=== PATIENT | male | born 1940 | race Caucasian/White ===

== ENCOUNTER 2019-08-17 16:36 | Emergency (ER) | payer MEDICARE, OTHER, SELFPAY ==
[2019-08-17 16:37] VITALS: BP 133/85; PULSE 73; RESP 16; TEMP 36.1; O2SAT 99; BMI 23.7
--- NOTE | 2019-08-17 17:30 | CT_ITS ---
STUDY: CT BRAIN WITHOUT CONTRAST REASON FOR EXAM: Male, 78 years old. Intoxication. Fall. RADIATION DOSAGE (If Supplied By Facility): CTDIvol = ( 44.99 ) mGy, DLP = ( 846.73 ) mGycm TECHNIQUE: Transaxial CT imaging of the brain was performed without administration of intravenous contrast material. Individualized dose optimization techniques were used for this CT. COMPARISON: No relevant priors. FINDINGS: Normal soft tissue structures. Normal calvarium. There are deformities along both sides of the nose system with fractures of indeterminate age. There is moderate cerebral atrophy with widening of the extra-axial spaces and ventricular dilatation. There are areas of decreased attenuation within the white matter tracts of the supratentorial brain, consistent with microvascular disease changes. Normal basal ganglia and thalami. Normal brainstem. There is moderate cerebellar atrophy. There is no intracranial hemorrhage. There are no findings of an acute ischemic infarction. Normal visualized paranasal sinuses. CT/Brain/Head without Contrast IMPRESSION: Chronic involutional changes of the brain. No acute intracranial abnormality seen. Electronically Signed: Cash Vidal MD at 19:08 EST , Service support ,
--- NOTE | 2019-08-17 17:32 | ED.VIS.INJ ---
History of Present Illness Chief Complaint: Fall Informant: Patient Onset: Today Mechanism/Context: Fall - down flight of stairs Location: right forehead Current Severity: Gone - no pain Associated Symptoms: Amnesia. Negative for: Parasthesias, Weakness, Loss of function, Inability to ambulate Narrative: Patient is admittedly intoxicated, was found at the bottom of a flight of stairs. The patient does not remember anything but knows that he fell. He states he is fine. He has a laceration above his right eye that he is aware of. He is okay with that being repaired. He then continues to converse about his experiences in [place]. Past Medical History - Allergies and Home Meds Allergies/Adverse Reactions: Allergies No Known Allergies Allergy (Verified 08/17/19 16:42) Primary Care Physician: [facility] [Primary Care Provider] - Past Medical History: - - unknown Smoking Status: Current every day smoker Review of Systems ROS: Unable to Obtain - limited due to intoxication Eyes: Denies: Visual changes - bilaterally, Diplopia ENT: Denies: Bilateral ear pain, Rhinorrhea, Sore throat Cardiovascular: Denies: Chest pain, Palpitations Respiratory: Denies: Dyspnea, Cough, Dyspnea on exertion Gastrointestinal: Denies: Abdominal pain, Nausea, Vomiting, Diarrhea Genitourinary: Denies: Dysuria, Hematuria Musculoskeletal: Denies: Neck pain, Back pain, Swelling, Extremity Pain Skin: Reports: Abrasions. Denies: Rash, Abscess Neurological: Denies: Headache, Weakness, Numbness Physical Exam Vital Signs/Narrative: Vital Signs Temp Pulse Resp BP Pulse Ox 08/17/19 16:37 97.0 F L 73 16 133/85 H 99 Inital Vital Signs reviewed: Yes General: Well nourished, Well developed Head: Normocephalic, Trauma - right sup orbital brim lac, no bony tenderness/deformity/depression Eyes: Perrl, EOMI - w/o entrapment or pain ENT: TM's clear, No hemotympanum or drainage, - - midface stable. 3cm full thickness irreg lac to right sup orb brim; no other facial trauma or bony tenderness. no infraorbital hypoesthesia.. Negative for: Otorrhea, Nasal septal hematoma Neck: Nontender, Full ROM. Negative for: Spinal Tenderness, Paraspinal Tenderness Cardiovascular: Regular rate, Regular rhythm, No murmurs Respiratory: No distress, CTA bilaterally, Chest nontender Abdomen: Soft, Nontender, Nondistended, Normal bowel sounds Back: Nontender. Negative for: Spinal Tenderness Skin: Normal color, No rash, Trauma - facial lac 3cm Neurological: Alert, Oriented x3, Cranial nerves II-XII grossly intact, Normal Strength, Normal Sensation Psychological: Normal affect, Normal Mood, - - intoxicated - Glascow Coma Scale Eye Opening: Spontaneous Motor: Obeys Commands Verbal: Oriented Coma Scale Total: 15 Diagnostic/Tx/Re-eval Clinical Impression(s) from Imaging Studies Brain CT 08/17/19 17:30 IMPRESSION: Chronic involutional changes of the brain. No acute intracranial abnormality seen. Electronically Signed: Cash Vidal MD at 19:08 EST , Service support , - Medical Decision Making Patient eventually agreed to CT which initially refused. It shows no acute traumatic abnormalities. He was monitored for over 3 hours until he can get a ride, he became clinically sober, continue to be conversive with no lapses in consciousness or other symptoms that he did not present with. He is ambulatory. He has a ride home. His laceration was repaired. He was advised to follow-up with a doctor or return to ER in 6 days or so for wound reevaluation and suture removal. Laceration Right eyebrow Length: 3 cm Depth: Skin Shape: Linear Prep: Sterile Conditions, Chlorhexadine Laceration Repair: Lidocaine with epi - 2 cc, in addition to topical LET Irrigated (ml): 30 Number of Sutures/[place]: 4 Stitch Description: Ethilon, Simple, 6-0 Comment: Tolerated well. No complications. ED Disposition - Plan for ED Patient: Disposition: Home or Assisted Living Diagnosis: Closed head injury without loss of consciousness, Facial laceration, Alcohol intoxication, Fall down stairs Instructions: LACERATION, All [facility]errals: [facility] [Primary Care Provider] - 5 Days for suture removal (Your doctor of your choosing or ER)
[2019-08-17] MEDS: Lidocaine/Epi/Tetracaine 50 ML 1 APPLIC TOPICAL (17:45)
[2019-08-17 18:34] VITALS: RESP 16
== END 2019-08-17 20:05 | disposition home or self-care (01) ==
PROVIDERS: Emergency Provider Emergency Medicine
DX: S01.81XA Laceration without foreign body of other part of head, initial encounter (principal); W10.9XXA Fall (on) (from) unspecified stairs and steps, initial encounter; Y93.9 Activity, unspecified; Y92.9 Unspecified place or not applicable; Y99.9 Unspecified external cause status; F10.129 Alcohol abuse with intoxication, unspecified; F17.200 Nicotine dependence, unspecified, uncomplicated
CPT/HCPCS: 12013; 70450; 99284